=== PATIENT | female | born 1955 | race Caucasian/White ===

== ENCOUNTER 2017-05-23 10:07 | Day surgery (SDC) | payer OTHER ==
[~2017-05-23] VITALS: Ht 172.7 cm; Wt 134.7 kg
[~2017-05-23 10:07] MED LIST: ASPERDRINK81 MG PO; BABY ASPIRIN81 M1 PO; CELEXA40 MG PO; CITALOPRAM HBR40 MG; CLARITIN,ALAVAR10 MG PO; CRESTOR10 MG; CRESTOR10 MG PO; Chlor-Trimeton PO; DIOVAN80 MG PO; KEFLEX500 MG PO; LO-DOSE ASPIRIN81 M1 PO; METOPROLOL SUCC50 MG; METOPROLOL SUCC50 MG PO; MULTI-VITAMIN1 EAC4 PO; NITROSTAT0.4 MG SL; NON-ASPIRIN PA500 M1 PO; PRILOSEC20 MG PO; TOPROL XL50 MG PO; Toprol XL PO; Tylenol Extra Streng PO; VITAMIN D2000 UNI1 PO; VITAMIN D32000 UNIT PO; Vitamin D PO; WOMEN'S ONE DA1 EACH PO; [UNRECOGNIZED DRUG - OTHER] BOTH EYES; celeXA PO
[2017-05-23 10:43] VITALS: BP 136/65
[2017-05-23 16:30] VITALS: BP 136/73
[2017-05-23 17:30] VITALS: BP 140/71
[2017-05-23 18:44] VITALS: BP 139/68
== END 2017-05-23 18:55 | disposition home or self-care (01) ==
LOC: SDC 10:07
DX: M67.02 Short Achilles tendon (acquired), left ankle (principal); M89.9 Disorder of bone, unspecified; M76.62 Achilles tendinitis, left leg; S86.012A Strain of left Achilles tendon, initial encounter; K21.9 Gastro-esophageal reflux disease without esophagitis; E78.00 Pure hypercholesterolemia, unspecified; I25.10 Atherosclerotic heart disease of native coronary artery without angina pectoris; E11.9 Type 2 diabetes mellitus without complications; I10 Essential (primary) hypertension; E66.01 Morbid (severe) obesity due to excess calories; Z68.42 Body mass index [BMI] 45.0-49.9, adult; I25.2 Old myocardial infarction; Z88.4 Allergy status to anesthetic agent; Z88.2 Allergy status to sulfonamides; Z79.82 Long term (current) use of aspirin; X58.XXXA Exposure to other specified factors, initial encounter
CPT/HCPCS: J0330; J0690; J1100; J2250; J2405; J2765; J3010; S0020